=== PATIENT | male | born 1940 | race Caucasian/White ===

== ENCOUNTER → 2019-01-09 20:11 | Outpatient (REF) | payer OTHER, SELFPAY ==
[2019-01-09 20:46] LABS: Alanine Aminotransferase 43 IU/L (21-72); Albumin 4.1 g/dL (3.5-5.0); Albumin Globulin Ratio 1.6 (1.0-2.8); Alkaline Phosphatase 84 U/L (38-126); Aspartate Aminotransferase 30 IU/L (17-59); BUN Creatinine Ratio 26.7 (6-22); Bilirubin Total 0.3 mg/dL (0.2-1.3); Blood Urea Nitrogen 32 mg/dL (9-20); Carbon Dioxide 30 mmol/L (22-32); Chloride 101 mmol/L (98-107); Cholesterol 101 mg/dL (140-199); Creatine Kinase 490 U/L (55-170); Estimated Glomerular Filt Rate 58.4 mL/min (>60); Globulin 2.6 g/dL (1.7-4.1); Glucose 138 mg/dL (80-110); HDL Cholesterol 19 mg/dL (40-60); HEMOLYSIS < 15 (0-50); LDL Cholesterol Calculated 37 mg/dL (<100); Potassium 4.4 mmol/L (3.4-5.1); Sodium 140 mmol/L (137-145); Total Protein 6.7 g/dL (6.3-8.2); Triglycerides 227 mg/dL (35-150)
[2019-01-09 20:47] LABS: Hematocrit 38.4 % (41-53); Hemoglobin 12.4 g/dL (13.5-17.5); Mean Corpuscular HGB Conc 32.2 % (30-36); Mean Corpuscular Volume 87.1 fL (80-100); Platelet Count 164 X10^3/uL (150-400); Red Blood Cell Count 4.41 X10^6/uL (4.5-5.9); Red Cell Distribution Width 14.4 % (11.6-14.8); White Blood Cell Count 5.9 X10^3/uL (4.5-11.0)
[2019-01-09 20:48] LABS: Add Manual Diff / Slide Review YES
[2019-01-09 21:02] LABS: Hemoglobin A1C% w Est Avg Glu 6.8 % (4.0-6.0)
[2019-01-09 21:19] LABS: Neutrophils Absolute Manual 2596 /uL (3000-5900); Total Cells Counted 100
[2019-01-09 21:22] LABS: RBC Morphology Normal Morphology
== END ==
LOC: LAB 20:11
PROVIDERS: PCP Family Medicine Geriatric Medicine; Visit Provider Family Medicine Geriatric Medicine
DX: E11.29 Type 2 diabetes mellitus with other diabetic kidney complication (principal); M10.9 Gout, unspecified; D64.9 Anemia, unspecified
CPT/HCPCS: 36415; 80053; 80061; 82550; 83036; 85025